=== PATIENT | female | born 1980 | race Two or more races ===

== ENCOUNTER 2020-08-14 09:00 | Inpatient (IN) | payer OTHER ==
[~2020-08-14] VITALS: Ht 165.1 cm; Wt 81.2 kg
[~2020-08-14 09:00] MED LIST: CLARINEX5 MG/TAB PO; PRENATABS FA TA1 TAB; PYRIDIUM DS200 MG PO
[2020-08-18] MEDS ORDERED: FEROSUL325 MG (07:57)
[2020-08-18] MEDS ORDERED: MEDROXYPRO150 MG/1 M (07:57)
[2020-08-20] MEDS ORDERED: CODE1TAB37 PO (07:31)
[2020-08-20] MEDS ORDERED: DOCUSATE SODIU100 MG PO (07:31)
== END 2020-08-20 10:23 | disposition home or self-care (01) | DRG 743 ==
LOC: OB/GYN 08-18 06:54 → O/R 08-18 06:54 → OB/GYN 08-18 09:00
PROVIDERS: ADMIT Obstetrics & Gynecology Gynecology; ATTEND Obstetrics & Gynecology Gynecology
PROC: 0UT50ZZ Resection of Right Fallopian Tube, Open Approach (ICD-10-PCS; 2020-08-18)
PROC: 0UB60ZZ Excision of Left Fallopian Tube, Open Approach (ICD-10-PCS; 2020-08-18)
PROC: 0USG0ZZ Reposition Vagina, Open Approach (ICD-10-PCS; 2020-08-18)
PROC: 0UT90ZZ Resection of Uterus, Open Approach (ICD-10-PCS; principal; 2020-08-18 09:15)
DX: N92.1 Excessive and frequent menstruation with irregular cycle (principal); D25.1 Intramural leiomyoma of uterus; D25.2 Subserosal leiomyoma of uterus